=== PATIENT | female | born 1965 | race Caucasian/White ===

== ENCOUNTER 2022-02-11 09:07 | Outpatient (CLI) | payer SELFPAY ==
[~2022-02-11] VITALS: Ht 167.4 cm; Wt 57.2 kg
== END 2022-02-11 15:30 | disposition home or self-care (01) ==
LOC: PREOP 09:07
PROVIDERS: ATTEND Podiatrist Foot & Ankle Surgery
DX: Z01.818 Encounter for other preprocedural examination (principal)

== ENCOUNTER 2022-02-13 10:50 | Day surgery (SDC) | payer SELFPAY ==
[2022-02-13] VITALS (10 sets, daily range): BP systolic 105–130; BP diastolic 68–79
[~2022-02-13] VITALS: Ht 167.4 cm; Wt 57.2 kg
[2022-02-13] MEDS ORDERED: proPOfol 200 MG/20 ML (DIPRIVAN) VIAL IV ONE (11:26)
[2022-02-13] MEDS ORDERED: fentaNYL INJ 100 MCG/2 ML AMP ONE (11:26)
[2022-02-13] MEDS ORDERED: LIDOCAINE PF 2% 5 ML (XYLOCAINE) VIAL ONE (11:26)
[2022-02-13] MEDS ORDERED: ONDANSETRON 4 MG/2 ML (SDV) Z0FRAN ONE (11:26)
[2022-02-13] MEDS ORDERED: BUPIVACAINE 0.5% 30 ML (SENSORCAINE) VIAL ONE (11:27)
[2022-02-13] MEDS ORDERED: MIDAZOLAM 2 MG/2 ML (VERSED) VIAL ONE (11:27)
[2022-02-13] MEDS ORDERED: LIDOCAINE 1% INJ 10 ML VIAL ONE (11:27)
[2022-02-13] MEDS ORDERED: ceFAZolin INJECTION 1,000 MG ONE (11:32)
[2022-02-13] MEDS ORDERED: NS (IVPB) 50 ML ONE (11:32)
[2022-02-13] MEDS ORDERED: PROPOFOL INJECTION 50 ML IV ONE (11:36)
--- NOTE | 2022-02-13 11:40 | Progress Note-Pre Operative ---
Pre-Operative Progress Note Date of Available H&P: Feb 13, 2022 Date H&P Reviewed: Feb 13, 2022 Time H&P Reviewed: 11:39 Pre-Operative Diagnosis: Foreign Body Right foot CATHRYN LABOY DPM Feb 13, 2022 11:40
[2022-02-13] MEDS ORDERED: LACTATED RINGERS 1,000 ML IV PRN (12:30)
[2022-02-13] MEDS ORDERED: ceFAZolin INJECTION 1,000 MG in NS (IVPB) 50 ML IV ONE (12:30)
--- NOTE | 2022-02-13 12:53 | Anesthesia-General Post-Op ---
General Patient Condition Mental Status/LOC: Same as Preop Cardiovascular: Satisfactory Nausea/Vomiting: Absent Respiratory: Satisfactory Pain: Controlled Complications: Absent Post Op Complications Complications None Follow Up Care/Instructions Patient Instructions None needed. Anesthesia/Patient Condition Patient Condition Patient is doing well, no complaints, stable vital signs, no apparent adverse anesthesia problems. No complications reported per nursing. EVON SHERMAN CRNA Feb 13, 2022 12:53
--- NOTE | 2022-02-13 12:55 | Progress Note-Post Operative ---
Post-Operative Progess Note Surgeon (s)/[employer]oter [employer] (s) Surgeon CATHRYN LABOY DPM [employer]: none Pre-Operative Diagnosis Foreign Body Right foot Post-Operative Diagnosis Same Procedure & Operative Findings Date of Procedure 02/13/22 Procedure Performed/Findings Removal of deep Foreign Body, right foot Anesthesia Type General Estimated Blood Loss Estimated blood loss (mL): Minimal Specimens/Packing Specimens Removed Clear, Hard, Foreign Body Packing: none CATHRYN LABOY DPM Feb 13, 2022 12:55
[2022-02-13] MEDS ORDERED: BUPIVACAINE 0.5% 30 ML (SENSORCAINE) VIAL IJ ONE (12:58)
[2022-02-13] MEDS ORDERED: ACHD5005 PO (12:58)
[2022-02-13] MEDS ORDERED: HYDROcodone/APAP 5 MG/325 MG (LORTAB) TAB PO PRN (13:00)
[2022-02-13] MEDS ORDERED: ONDANSETRON 4 MG/2 ML (SDV) Z0FRAN IVP PRN (13:00)
[2022-02-13] MEDS ORDERED: fentaNYL INJ 100 MCG/2 ML AMP IVP ONE (13:00)
[2022-02-13] MEDS ORDERED: LACTATED RINGERS 1,000 ML IV SCH (13:00)
[2022-02-13] MEDS ORDERED: LIDOCAINE 1% INJ 10 ML VIAL IJ ONE (13:00)
--- NOTE | 2022-02-13 14:46 | Physical Therapy Progress Note ---
Therapy Progress Note Patient declined PT intervention secondary to patient has been NWB right foot x 20 days on axillary crutches. RN confirms. No PT indicated.\ 1 visit LORNA KING PT Feb 13, 2022 14:46
--- NOTE | 2022-02-13 15:05 | OPERATIVE REPORT ---
DATE OF SERVICE: 02/13/2022 SURGEON: Bernadette Laboy DPM. PREOPERATIVE DIAGNOSIS: Foreign body, right foot. POSTOPERATIVE DIAGNOSIS: Foreign body, right foot. PROCEDURE: Removal of deep foreign body, right foot. WOUND CLASS: Clean contaminated. ANESTHESIA: General. HEMOSTASIS: Pneumatic thigh tourniquet at 250 mmHg. INDICATION: This 56-year-old female presents complaining of a painful right foot. Approximately 19 days ago, she had an injury where she was brushing some leaves with her barefoot and felt something sharp. There is a puncture wound. She tried to clean it and was very uncomfortable and got progressively worse with time. She was seen in my office and x-rays were taken, which demonstrated a foreign body underneath the second metatarsal head area. Conservative therapy is met with unsatisfactory results and she is agreeable to surgical intervention after risks and complications were discussed at length. No guarantees were extended to the patient. She understands there is a possibility of lacerated tendons, blood vessels as well as nerves and she is willing to proceed. She understands that our efforts will be to retrieve the largest of the foreign bodies and we assumed the only one, however, there is always a risk that more of the potential glass or other foreign body will be left behind. DESCRIPTION OF PROCEDURE: The patient was brought back to the operating table, placed in secure supine position. Appropriate timeout was performed. A pneumatic thigh tourniquet was placed on the right lower extremity after a general anesthetic was induced. A 7 mL of 1:1 mixture of 1% Xylocaine, 0.5% Marcaine was used for local injection after the foot was prepped and draped in normal sterile manner. The local injection was performed due to incomplete hypoesthesia to the foot. This allowed us to proceed without any further delays. The injection was just proximal to the proposed incision site, which was marked preoperatively with x-ray guidance. Utilizing a 15 blade, the 2.5 cm longitudinal linear incision was created just medial to the inferior aspect of the second metatarsal head. The incision was deepened in the same plane with great care to identify and retract all vital neurovascular structures. Only necessary blood vessels were cauterized as encountered. Sharp and blunt dissection was carried out to the deep transverse intermetatarsal ligament area. Just inferior to this lesion and at the level of the flexor tendons, was located the foreign body. It was a clear hard material consistent with glass. It measured approximately 1 cm in length and slightly less than a centimeter in width in triangular type of fashion. No other foreign bodies were identified. The entry wound was underneath the plantar medial first metatarsal. The patient did not have any significant pain underneath the first metatarsal preoperatively; however, I felt that if I dissected in between the entry point and its final resting spot, there would be a significant dissection and trauma to the patient and I felt this was adequate as it was the only foreign body that showed up on x-ray, both preoperatively and intraoperatively. The wound was flushed with copious amounts of normal saline under pulse irrigation, the wound was then closed in layers. Deep closure was performed with 4-0 Vicryl, superficial with 4-0 Vicryl and skin closure with 4-0 Prolene in a simple interrupted type stitch. Postoperative injection consisted of 10 more mL of 1:1 mixture of 1% Xylocaine, 0.5% Marcaine injected in a local infusion to the surgical site. Postoperative dressing consisted of Betadine soaked Adaptic, sterile 4 x 4, sterile Kerlix, all secured with a Coban wrap. The patient tolerated the anesthesia and procedure well and was transported from the operating room to the recovery area with vital signs stable and vascular status intact to all digits of the right foot. The patient is to follow up in my office in 10 days' period of time or sooner if necessary. She was given postoperative instructions and to be nonweightbearing on the right lower extremity with the understanding that if she bears weight she could end up with a painful scar or more painful scar than she might already developed. Job ID: [id number] DocumentID: [id number] Dictated Date: 02/13/2022 13:06:17 Diagnostic Sales Specialist Date: 02/13/2022 15:05:19 Dictated By: BERNADETTE LABOY DPM
--- NOTE | 2022-02-13 15:30 | Diagnostic Imaging Report ---
INDICATION: Postoperative check. EXAMINATION: Right foot from 02/13/2022. FINDINGS: Two views of the foot. Overlying gauze-like material slightly obscures fine bony detail. There is a small lucency in between the distal first and second metatarsals, likely subcutaneous air from the recent surgery. A tiny density is noted in between the first and second metatarsals, age indeterminate. There are no acute fractures. No dislocations. IMPRESSION: 1. Postoperative changes as above. Dictated by: Dictated on workstation # [id number]
== END 2022-02-13 14:50 ==
LOC: SDC 10:50
PROVIDERS: ATTEND Podiatrist Foot & Ankle Surgery
DX: S91.341A Puncture wound with foreign body, right foot, initial encounter (principal); X58.XXXA Exposure to other specified factors, initial encounter
CPT/HCPCS: 73620; 87081

== ENCOUNTER → 2022-03-09 | Outpatient (CLI) | payer OTHER ==
[~2022-03-09] MED LIST: ACHD5005 PO
--- NOTE | 2022-03-09 17:39 | Diagnostic Imaging Report ---
PROCEDURE: MRI right lower extremity without contrast. TECHNIQUE: Multiplanar, multisequence non contrast-enhanced MRI of the right lower extremity was accomplished. INDICATION: Foreign body in the right foot COMPARISON: Radiographs from 02/13/2022 FINDINGS: No acute fracture is seen in the right foot. Alignment is normal. There is marked bone marrow edema of the medial hallux sesamoid in the plantar aspect of the 1st metatarsal head. This appears to be degenerative rather than due to trauma or infection. There is no joint effusion. Alignment appears normal. There is subcutaneous edema plantar to the 5th MTP joint. There is mild subcutaneous edema plantar to the great toe. Flexor and extensor tendons appear to be intact. There is a small 2 to 3 mm hypointensity plantar to the 2nd metatarsal neck which lies just deep to the dermis (image 23 series 4 and image 3 series 5). No soft tissue masses or fluid collections are seen. No significant muscular atrophy is seen. IMPRESSION: 1. Degenerative changes at the 1st metatarsal sesamoid interface, with medial hallux sesamoiditis. 2. Small hypointense focus just deep to the dermis plantar to the 2nd metatarsal. This could represent a calcification but a foreign body is not excluded, please correlate with clinical findings. Dictated by: Dictated on workstation # [id number]
== END ==
LOC: RAD 13:15
PROVIDERS: ATTEND Podiatrist Foot & Ankle Surgery
DX: M19.071 Primary osteoarthritis, right ankle and foot (principal); S90.851A Superficial foreign body, right foot, initial encounter